=== PATIENT | female | born 1970 | race Two or more races ===

== ENCOUNTER 2024-06-13 08:50 | Emergency (ER) | payer MEDICAID, SELFPAY ==
[2024-06-13 09:16] VITALS: BP 125/55; PULSE 66; RESP 19; TEMP 37.3; O2SAT 97; BMI 28.4
--- NOTE | 2024-06-13 09:22 | EDNOTE_ITS ---
Nausea/Vomit./Diarrhea-RME/HPI General Chief complaint: Dizziness Stated complaint: N/V, WEAKNESS, DIZZINESS Time Seen by Provider: 06/13/24 09:23 Source: patient Arrival date/time: 06/13/24 08:50 54-year-old female with no known medical history presents to the emergency room with a chief complaint of nausea, vomiting, weakness, fatigue that began this morning at 4 AM. Patient states she has vomited multiple times but denies any abdominal pain, diarrhea, fever. Mode of arrival: ambulatory Limitations: no limitations Related Data Previous Rx's ?Medication ?Instructions ?Recorded naproxen 500 mg tablet 500 mg PO BID #10 tabs 01/30/18 azithromycin 250 mg tablet See Rx Instructions PO .COMPLEX #6 02/17/21 tabs etodolac 400 mg tablet 400 mg PO BID PRN pain #30 tabs 05/03/21 methocarbamol 750 mg tablet 750 mg PO TID #30 tabs 05/03/21 acetaminophen 650 mg 650 mg PO Q12H PRN fever or pain 06/10/21 tablet,extended release (Tylenol 8 #30 tabs Hour) benzonatate 100 mg capsule 100 mg PO BID PRN cough #14 caps 06/10/21 acetaminophen 650 mg 650 mg PO Q8H PRN fever or pain 04/28/23 tablet,extended release (Tylenol 8 #30 tabs Hour) ibuprofen 600 mg tablet 600 mg PO Q8H PRN fever or pain 04/28/23 #30 tabs Allergies Allergy/AdvReac Type Severity Reaction Status Date / Time No Known Allergies Allergy Verified 04/28/23 07:44 Review of Systems Review of Systems Systems Reviewed: All systems reviewed, normal except as documented Constitutional Constitutional: Reports system reviewed and no additional complaints, except as documented, Denies fatigue, Denies fever(s), Denies headache(s) and Reports weakness Eyes Eyes: Reports system reviewed and no additional complaints, except as documented, Denies blurry vision and Denies change in vision ENT Ears, Nose, Mouth, and Throat: Reports system reviewed and no additional complaints, except as documented, Denies otalgia, Denies headache(s), Denies nasal congestion, Denies throat swelling and Denies vertigo Cardiovascular Cardiovascular: Reports system reviewed and no additional complaints, except as documented, Denies chest pain, Denies dyspnea and Denies dyspnea on exertion Respiratory Respiratory: Reports system reviewed and no additional complaints, except as documented, Denies chest congestion, Denies cough, Denies dyspnea, Denies dyspnea on exertion and Denies wheezing Gastrointestinal Gastrointestinal: Reports system reviewed and no additional complaints, except as documented, Denies abdominal pain, Reports cramping, Reports nausea and Reports vomiting Genitourinary Genitourinary: Reports system reviewed and no additional complaints, except as documented Musculoskeletal Musculoskeletal: Reports system reviewed and no additional complaints, except as documented and Denies back pain Integumentary/Breasts Skin/Breast: Reports system reviewed and no additional complaints, except as documented and Denies wounds Neurologic Neurologic: Reports system reviewed and no additional complaints, except as documented, Denies confusion, Denies headache(s), Denies lack of coordination, Denies vertigo and Reports weakness Psychiatric Psychiatric: Reports system reviewed and no additional complaints, except as documented, Denies anxiety, Denies confusion, Denies depression, Denies paranoia, Denies suicidal ideation and Denies tactile hallucinations Endocrine Endocrine: Reports system reviewed and no additional complaints, except as documented and Denies fatigue Hematologic/Lymphatic Hematologic/Lymphatic: Reports system reviewed and no additional complaints, except as documented and Denies lymphadenopathy Allergic/Immunologic Allergic/Immunologic: Reports system reviewed and no additional complaints, except as documented, Denies throat swelling, Denies urticaria and Denies wheezing Past Medical History Past Medical History NEUROLOGIC: Negative Neurological Disorders CARDIAC: Negative Cardiac Disorders or Congestive Heart Failure RESPIRATORY: Negative Chronic Obstructive Pulmonary Disease (COPD) GASTROINTESTINAL: Negative Gastrointestinal Disorders GENITOURINARY: Negative Genitourinary Disorders or Renal Disease MUSCULOSKELETAL: Negative Musculoskeletal Disorders ENDOCRINE: Positive Diabetes Mellitus Type 2; Negative Diabetes Mellitus Type 1 HEMATOLOGIC: Negative Blood Disorders PSYCHO/SOCIAL: Negative Psychiatric Problems Surgical History SURGICAL: Positive Section Social History SMOKING STATUS: Never smoker SUBSTANCE USE: does not use ED Exam General Limitations: Present no limitations General appearance: Present alert and in no apparent distress Head Head exam: Present atraumatic Eye Eye exam: Present normal appearance, PERRL and EOMI ENT ENT exam: Present normal exam, normal oropharynx and mucous membranes moist Neck Neck exam: Present normal inspection, full ROM and trachea midline Chest Chest inspection: Present normal inspection and symmetric chest wall rise Respiratory Respiratory exam: Present normal lung sounds bilaterally Cardiovascular Cardiovascular exam: Present regular rate, normal rhythm and normal heart sounds Abdominal Exam Abdominal exam: Present soft and normal bowel sounds Extremities Exam Extremities exam: Present normal inspection and full ROM Back Exam Back exam: Present normal inspection and full ROM Neurological Exam Neurological exam: Present alert, oriented X3 and CN II-XII intact Psychiatric Psychiatric exam: Present normal affect and normal mood Skin Skin exam: Present warm, dry, intact and normal color Course Quality Measures none Orders Category Date Time Status EKG (ED ONLY) *Do not use* NOW Care 06/13/24 09:25 Completed EKG (ED Only) Stat Exams 06/13/24 09:25 Ordered BNP [B-Type Natriuretic Peptide] Stat Lab 06/13/24 09:58 Completed CBC Stat Lab 06/13/24 09:58 Completed CMP [Comprehensive Metabolic Panel] Stat Lab 06/13/24 09:58 Completed HCG Qualitative,Urine Stat Lab 06/13/24 09:41 Completed Lipase Stat Lab 06/13/24 09:58 Completed Troponin I Stat Lab 06/13/24 09:58 Completed UA [Urinalysis] Stat Lab 06/13/24 09:41 Completed Urine Culture Stat Lab 06/13/24 09:48 Received Meclizine HCl [Antivert] Med 06/13/24 09:21 Discontinued 25 mg PO X1 ONE Ondansetron Odt [Zofran Odt] Med 06/13/24 09:21 Discontinued 4 mg PO X1 ONE Vital Signs Vital signs: Vital Signs Temperature 99.2 F 06/13/24 09:16 Pulse Rate 66 06/13/24 09:16 Respiratory Rate 19 06/13/24 09:16 Blood Pressure 125/55 L 06/13/24 09:16 Pulse Oximetry (%) 97 06/13/24 09:16 Oxygen Delivery Method Room Air 06/13/24 09:16 O2 saturation 97% within normal limits Nausea/Vomiting/Diarrhea MDM Narrative MDM Narrative:: 54-year-old female with no known medical history presents to the emergency room with a chief complaint of nausea, vomiting, weakness, fatigue that began this morning at 4 AM. Patient states she has vomited multiple times but denies any abdominal pain, diarrhea, fever. Clinically the patient appears nontoxic and in no apparent distress. Physical examination shows a soft nontender abdomen. Patient denies any abdominal pain and states she is only nauseous and has vomited multiple times and is also having extreme fatigue. CBC and CMP were negative for any acute findings urinalysis was negative. Patient was discharged and educated to follow-up with primary care provider and return to the emergency room for any evidence of worsening signs or symptoms Patient data External records reviewed:: [facility] previous records Clinical information provided by:: patient Social determinants that could affect healthcare access:: none Patient has the following chronic illnesses:: No chronic illness How is presenting disease/condition affected by chronic disease/condition?: no chronic disease Evaluation data The following diagnostics were reviewed and interpreted by me:: lab results and radiology exam(s) Lab and/or radiology exams considered but not ordered:: Labs and radiology exams considered and ordered Interpretation Summary: N/A Medications / Prescriptions Medications / Prescriptions considered but not ordered:: Medication given Medication administrations:: Medication Administration History Discontinued Medications Meclizine HCl (Meclizine Hcl 25 Mg Tablet) 25 mg PO X1 ONE Stop: 06/13/24 09:22 Last Admin: 06/13/24 09:39 Dose: 25 mg Documented By: HERBERT Ondansetron HCl (Ondansetron Odt 4 Mg Tabrap) 4 mg PO X1 ONE; Protocol Stop: 06/13/24 09:22 Last Admin: 06/13/24 09:39 Dose: 4 mg Documented By: HERBERT Medication given Consultations Consultation(s) initiated? (list below): No Diagnosis Nausea Differential Diagnosis: traveler's diarrhea, food poisoning, gastroenteritis, dehydration and other (Weakness) Most likely diagnosis given after review of the tests above:: Weakness Admission Indicated Admission indicated?: not indicated Admission Request Was there a request for admission?: No Disposition Plan Disposition Plan: Discharge Discharge Attestation Discharge Attestation: The patient and all family members were given an opportunity to ask questions and understood the discharge instructions. Discharge instructions specifically effects, indications for sooner follow up or return to the emergency department, and the expected course of current diagnosis. Patient condition: Stable Discharge Plan Plan Patient Disposition: HOME (Self Care) Disposition Comment: Stable Prescriptions/Referrals Prescriptions/Med Rec: No Action naproxen 500 mg tablet 500 mg PO BID Qty: 10 0RF benzonatate 100 mg capsule 100 mg PO BID PRN (Reason: cough) Qty: 14 0RF acetaminophen [Tylenol 8 Hour] 650 mg tablet extended release 650 mg PO Q12H PRN (Reason: fever or pain) Qty: 30 0RF azithromycin 250 mg tablet See Rx Instructions .ROUTE .COMPLEX Qty: 6 0RF Rx Instructions: take 500 mg today (day 1), then 250 mg for 4 days (days 2-5) methocarbamol 750 mg tablet 750 mg PO TID Qty: 30 0RF etodolac 400 mg tablet 400 mg PO BID PRN (Reason: pain) Qty: 30 0RF acetaminophen [Tylenol 8 Hour] 650 mg tablet extended release 650 mg PO Q8H PRN (Reason: fever or pain) Qty: 30 0RF ibuprofen 600 mg tablet 600 mg PO Q8H PRN (Reason: fever or pain) Qty: 30 0RF Referrals: Alfonso Melo [Primary Care Provider] - In 1 week Problem List Clinical Impression: Weakness Patient/Caregiver Discharge Instructions Education Materials: ED Weakness (Uncertain Cause) Additional Instructions: Ghanshyam un seguimiento con grijalva proveedor de atenci?n primaria en las pr?ximas 24 a 48 horas. Grijalva examen card?aco estuvo dentro de los l?mites normales. Grijalva an?lisis de gisel fue normal y grijalva an?lisis de orina fue normal. Grijalva nivel de az?car en la gisel est? un poco elevado, tome grijalva medicamento para la diabetes. Si hay evidencia de signos o s?ntomas que empeoran, regrese a la nesha de emergencias de inmediato. Print Language: Chinese Stand Alone Forms: [employer] Award Info., Patient Portal Info Letter PA/ASSOCIATE PROFESSOR OF LAW Supervising Physician PA/ASSOCIATE PROFESSOR OF LAW Supervising Physician: Dr Jo
[2024-06-13] MEDS: MECLIZINE HCL 25 MG TABLET PO (09:39)
[2024-06-13] MEDS: ONDANSETRON ODT 4 MG TABRAP PO (09:39)
[2024-06-13 10:15] LABS: Collection Type, Urine Clean Catch; RBC,Urine 0 /hpf (0-3)
[2024-06-13 10:26] LABS: Basophils # (Auto) 0.1 Thou/mm3 (0.0-0.2); Basophils % (Auto) 1 % (0-2.5); Eosinophils % (Auto) 0 % (0-10); Hematocrit 40.2 % (36.0-46.0); Hemoglobin 13.4 g/dL (12.0-16.0); Immature Granulocytes % (Auto) 0 % (0-0); Immature Granulocytes Auto 0.04 Thou/mm3 (0.00-0.00); Lymphocytes # (Auto) 1.1 Thou/mm3 (1.0-4.8); Lymphocytes % (Auto) 11 % (10-50); Mean Corpuscular HGB Conc 33.3 g/dl (31.0-37.0); Mean Corpuscular Hemoglobin 27.1 pg (25.0-35.0); Mean Corpuscular Volume 81 fL (80-100); Monocytes # (Auto) 0.2 Thou/mm3 (0.0-0.8); Monocytes % (Auto) 2 % (0-12); Neutrophils # (Auto) 8.4 Thou/mm3 (1.8-7.7); Neutrophils % (Auto) 86 % (37-80); Nucleated Red Blood Cell % 0 /100 WBC (0); Platelet Count 295 Thou/mm3 (140-440); RDW Standard Deviation 38.6 fL (36.4-46.3); Red Blood Count 4.95 Miln/mm3 (4.00-5.20); White Blood Count 9.9 Thou/mm3 (3.6-11.0)
[2024-06-13 10:36] LABS: B-Type Natriuretic Peptide 23 pg/mL (0-100)
[2024-06-13 10:37] LABS: Alanine Aminotransferase 37 U/L (10-49); Albumin, Serum 4.4 gm/dL (3.5-5.0); Albumin/Globulin Ratio 1.3 (1.2-2.2); Alkaline Phosphatase 107 U/L (46-116); Anion Gap 9 (7-16); Aspartate Amino Transferase 35 U/L (0-34); BUN/Creatinine Ratio 16 Ratio (12-20); Bilirubin,Total 0.5 mg/dL (0.3-1.2); Blood Urea Nitrogen 11 mg/dL (9-23); Calcium 9.7 mg/dL (8.3-10.6); Calcium (Corrected) 9.7 mg/dL (8.5-10.1); Carbon Dioxide 25.3 mMol/L (20.0-31.0); Chloride 103 mMol/L (98-107); Creatinine (Component) 0.7 mg/dL (0.6-1.3); Estimated Creatinine Clearance 85.8 mL/min (>60); Globulin 3.4 gm/dL (2.3-3.5); Glucose 274 mg/dL (74-106); Lipase 37 U/L (12-53); Osmolality,Calculated 283 (275-295); Potassium 4.3 mMol/L (3.4-5.1); Sodium 137 mMol/L (136-145); Total Protein 7.8 gm/dL (5.7-8.2); Troponin I < 0.002 ng/mL (0.0-0.045); eGFR > 60 See Note
[2024-06-13 10:50] LABS: HCG Qualitative,Urine Negative
[2024-06-13 10:53] LABS: Bilirubin,Urine Negative (Negative); Blood,Urine Negative (Negative); Clarity,Urine Clear (Clear/Hazy); Color,Urine Colorless (Lt Yel-Yel); Glucose, Urine 4+ (Negative); Ketones,Urine 1+ (Negative); Leukocyte Esterase,Urine Negative (Negative); Nitrite,Urine Negative (Negative); PH,Urine 7.5 (5.0-7.0); Protein,Urine Negative (Neg - Trace); Specific Gravity,Urine 1.028 (1.001-1.035); Squamous Epithelial Cell,Urine 1 /hpf (0-5); Urobilinogen,Urine Negative mg/dL (0.0-1.0); WBC,Urine 7 /hpf (0-5)
== END 2024-06-13 11:24 | disposition home or self-care (01) ==
PROVIDERS: Nurse Practitioner Family; Emergency Provider Emergency Medicine; PCP Physician Assistant
DX: R53.1 Weakness (principal); R11.2 Nausea with vomiting, unspecified
CPT/HCPCS: 36415; 80053; 81001; 81025; 83690; 83880; 84484; 85025; 87086; 93005; 99283; Q0162; A9270